=== PATIENT | male | born 2000 | race American Indian/Alaskan Native ===

== ENCOUNTER 2020-10-27 11:39 | Emergency (ER) | payer MEDICAID ==
[2020-10-27 12:09] VITALS: BP 128/83
[2020-10-27] MEDS ORDERED: ONDANSETRON 4 MG ODT TAB ONE (12:10)
[2020-10-27] MEDS ORDERED: ONDANSETRON 4 MG ODT TAB PO ONE (12:11)
[2020-10-27] MEDS ORDERED: SODIUM CHLORIDE 0.9% 1000 ML 1,000 ML IV ONE (12:30)
--- NOTE | 2020-10-27 12:30 | Emergency Department Report ---
Blank Doc - Documentation Documentation: The emergency department complaining of severe right lower quadrant pain radia shelley to the right flank This initial assessment/diagnostic orders/clinical plan/treatment(s) is/are subject to change based on patients health status, clinical progression and re- assessment by fellow clinical providers in the ED. Further treatment and workup at subsequent clinical providers discretion. Patient/guardian urged not to elope from the ED as their condition may be serious if not clinically assessed and managed. Initial orders include: Labs urinalysis and CT scan
== END 2020-10-27 13:13 ==
LOC: ED 11:39
DX: R10.31 Right lower quadrant pain (principal); Z53.21 Procedure and treatment not carried out due to patient leaving prior to being seen by health care provider
CPT/HCPCS: Q0162

== ENCOUNTER 2020-12-07 09:15 | Emergency (ER) | payer SELFPAY ==
[2020-12-07 09:20] VITALS: BP 133/89
--- NOTE | 2020-12-07 09:22 | Event Note ---
ED Screening Note ED Screening Note: r flank pain off and on for months bad enough to come to ER again left in Dec due to wait n/v in the past - not today no diarrhea/constipation no fever or chills no dc blood in urine once - not this visit no pcp denies drugs/etoh/thc psh tubes in ears pmh denies This initial assessment/diagnostic orders/clinical plan/treatment(s) is/are subject to change based on patients health status, clinical progression and re- assessment by fellow clinical providers in the ED. Further treatment and workup at subsequent clinical providers discretion. Patient/guardian urged not to elope from the ED as their condition may be serious if not clinically assessed and managed. Initial orders include: ua chem/cbc
[2020-12-07 10:09] LABS: Basophils # (Auto) 0.1 K/mm3 (0.0-0.1); Basophils % (Auto) 1.1 % (0.0-1.8); Eosinophils # (Auto) 0.3 K/mm3 (0.0-0.4); Eosinophils % (Auto) 6.6 % (0.0-4.3); Hematocrit 43.3 % (35.5-45.6); Hemoglobin 14.8 gm/dl (11.8-15.2); Lymphocytes % (Auto) 42.6 % (13.4-35.0); Mean Corpuscular HGB Conc 34 % (32-34); Mean Corpuscular Volume 95 fl (84-94); Monocytes # (Auto) 0.6 K/mm3 (0.0-0.8); Monocytes % (Auto) 12.4 % (0.0-7.3); Platelet Count 188 K/mm3 (140-440); Red Blood Count 4.53 M/mm3 (3.65-5.03); Red Cell Distribution Width 13.1 % (13.2-15.2)
[2020-12-07 10:23] LABS: Alanine Aminotransferase 18 units/L (7-56); Albumin 4.6 g/dL (3.9-5); BUN/Creatinine Ratio 13; Blood Urea Nitrogen 12 mg/dL (9-20); Calcium 9.3 mg/dL (8.4-10.2); Hemolysis Index 28
[2020-12-07 10:54] LABS: Bilirubin,Urine NEG (Negative); Blood,Urine LG (Negative); Calcium Oxalate Crystals,Urine 1+; Color,Urine Yellow (Yellow); Mucus,Urine 3+ /HPF; RBC,Urine > 182.0 /HPF (0.0-6.0); Urobilinogen,Urine < 2.0 mg/dL (<2.0)
[2020-12-07] MEDS ORDERED: ACETAMINOPHEN 325 MG TAB PO ONE (11:23)
[2020-12-07] MEDS ORDERED: IBUPROFEN 400 MG TAB PO ONE (11:23)
--- NOTE | 2020-12-07 11:28 | Emergency Department Report ---
ED General Adult HPI - General Chief complaint: Abdominal Pain Stated complaint: SIDE PAIN PUI?: No Time Seen by Provider: 12/07/20 09:18 Source: patient, RN notes reviewed, old records reviewed Mode of arrival: Ambulatory Limitations: No Limitations - History of Present Illness Initial comments: The patient was evaluated in the emergency department for symptoms described in the history of present illness. He/she was evaluated in the context of the global COVID-19 pandemic, which necessitated consideration that the patient might be at risk for infection with the virus that causes COVID-19. Institutional protocols and algorithms that pertain to the evaluation of patients at risk for COVID-19 are in a state of rapid change based on information released by regulatory bodies including the CDC and federal and state organizations. These policies and algorithms were followed during the patient's care in the emergency department. Please note that these policies, procedures and recommendations changed on a rapid basis. This is a 20-year-old gentleman, who is not known to myself previously, presenting to the ER with a complaint of nontraumatic right flank pain for a few weeks to about a month and a half. He denies all other complaints. He denies testicular pain, nausea, vomiting, fever, dysuria. He has not really taken anything [id number] for this. He is currently drinking water. The pain does not radiate anywhere. The pain does not have exacerbating or relieving factors. No history of renal colic that he is aware of. -: Gradual, week(s), month(s) Location: abdomen Radiation: non-radiation Quality: aching Consistency: intermittent Improves with: none Worsens with: none Associated Symptoms: denies other symptoms - Related Data Previous Rx's Medication Instructions Recorded Last Taken Type Acetaminophen [Mapap] 500 mg PO Q6HR PRN #30 tablet 12/07/20 Unknown Rx Ibuprofen [Motrin] 400 mg PO Q8H PRN #30 tablet 12/07/20 Unknown Rx Ondansetron [Zofran Odt] 4 mg PO Q8HR PRN #20 tab.rapdis 12/07/20 Unknown Rx Tamsulosin [Flomax] 0.4 mg PO QHS #30 cap 12/07/20 Unknown Rx Allergies Allergy/AdvReac Type Severity Reaction Status Date / Time bee pollen Allergy Anaphylaxis Verified 12/07/20 09:17 ED Review of Systems ROS: Stated complaint: SIDE PAIN Other details as noted in HPI Comment: All other systems reviewed and negative Constitutional: denies: fever Gastrointestinal: denies: nausea, vomiting, diarrhea, constipation, hematemesis, melena, hematochezia Genitourinary: denies: urgency, dysuria, frequency, hematuria, testicular pain Musculoskeletal: denies: back pain ED Past Medical Hx - Past Medical History Previous Medical History?: No - Surgical History Past Surgical History?: No - Social History Smoking Status: Never Smoker Substance Use Type: None - Medications Home Medications: Home Medications Medication Instructions Recorded Confirmed Last Taken Type Acetaminophen [Mapap] 500 mg PO Q6HR PRN #30 tablet 12/07/20 Unknown Rx Ibuprofen [Motrin] 400 mg PO Q8H PRN #30 tablet 12/07/20 Unknown Rx Ondansetron [Zofran Odt] 4 mg PO Q8HR PRN #20 tab.rapdis 12/07/20 Unknown Rx Tamsulosin [Flomax] 0.4 mg PO QHS #30 cap 12/07/20 Unknown Rx ED Physical Exam - General Limitations: No Limitations General appearance: alert, in no apparent distress - Head Head exam: Present: atraumatic, normocephalic - Eye Eye exam: Present: normal appearance, EOMI. Absent: nystagmus - ENT ENT exam: Present: normal exam, normal orophraynx, mucous membranes moist, normal external ear exam - Neck Neck exam: Present: normal inspection, full ROM. Absent: tenderness, meningismus - Respiratory Respiratory exam: Present: normal lung sounds bilaterally. Absent: respiratory distress, wheezes, rales, rhonchi, stridor, decreased breath sounds - Cardiovascular Cardiovascular Exam: Present: regular rate, normal rhythm, normal heart sounds. Absent: bradycardia, tachycardia, irregular rhythm, systolic murmur, diastolic murmur, rubs, gallop - GI/Abdominal GI/Abdominal exam: Present: soft, normal bowel sounds. Absent: distended, tenderness, guarding, rebound, rigid, pulsatile mass - Rectal Rectal exam: Present: deferred - Extremities Exam Extremities exam: Present: normal inspection, full ROM, other (2+ pulses noted in the bilateral upper and lower extremities. There is no palpable cord. negative Homans sign. Muscular compartments are soft. The pelvis is stable.). Absent: pedal edema, calf tenderness - Back Exam Back exam: Present: normal inspection, full ROM. Absent: tenderness, CVA tenderness (R), CVA tenderness (L), paraspinal tenderness, vertebral tenderness - Neurological Exam Neurological exam: Present: alert, oriented X3, normal gait, other (No facial droop. Tongue midline. Extraocular movements intact bilaterally. Facial sensation intact to light touch in V1, V2, V3 distribution bilaterally. 5 and a 5 strength in 4 extremities. Sensation intact to light touch in 4 extremities.). Absent: motor sensory deficit - Psychiatric Psychiatric exam: Present: normal affect, normal mood - Skin Skin exam: Present: warm, dry, intact, normal color. Absent: rash ED Course Vital Signs 12/07/20 09:18 Temperature 97.7 F Pulse Rate 69 Respiratory 20 Rate Blood Pressure 133/89 O2 Sat by Pulse 100 Oximetry ED Medical Decision Making - Lab Data Result diagrams: 12/07/20 09:31 12/07/20 09:31 Vital Signs 12/07/20 09:18 Temperature 97.7 F Pulse Rate 69 Respiratory 20 Rate Blood Pressure 133/89 O2 Sat by Pulse 100 Oximetry Lab Results 12/07/20 12/07/20 12/07/20 Range/Units 09:28 09:31 09:31 WBC 4.7 (4.5-11.0) K/mm3 RBC 4.53 (3.65-5.03) M/mm3 Hgb 14.8 (11.8-15.2) gm/dl Hct 43.3 (35.5-45.6) % MCV 95 H (84-94) fl MCH 33 H (28-32) pg MCHC 34 (32-34) % RDW 13.1 L (13.2-15.2) % Plt Count 188 (140-440) K/mm3 Lymph % (Auto) 42.6 H (13.4-35.0) % Crook % (Auto) 12.4 H (0.0-7.3) % Eos % (Auto) 6.6 H (0.0-4.3) % Baso % (Auto) 1.1 (0.0-1.8) % Lymph # (Auto) 2.0 (1.2-5.4) K/mm3 Crook # (Auto) 0.6 (0.0-0.8) K/mm3 Eos # (Auto) 0.3 (0.0-0.4) K/mm3 Baso # (Auto) 0.1 (0.0-0.1) K/mm3 Seg Neutrophils % 37.3 L (40.0-70.0) % Seg Neutrophils # 1.8 (1.8-7.7) K/mm3 Sodium 139 (137-145) mmol/L Potassium 4.3 (3.6-5.0) mmol/L Chloride 105.0 (98-107) mmol/L Carbon Dioxide 29 (22-30) mmol/L Anion Gap 9 mmol/L BUN 12 (9-20) mg/dL Creatinine 0.9 (0.8-1.3) mg/dL Estimated GFR > 60 ml/min BUN/Creatinine Ratio 13 % Glucose 98 (75-100) mg/dL Calcium 9.3 (8.4-10.2) mg/dL Total Bilirubin 0.80 (0.1-1.2) mg/dL AST 18 (5-40) units/L ALT 18 (7-56) units/L Alkaline Phosphatase 57 (35-129) units/L Total Protein 7.4 (6.3-8.2) g/dL Albumin 4.6 (3.9-5) g/dL Albumin/Globulin Ratio 1.6 % Lipase 26 (13-60) units/L Urine Color Yellow (Yellow) Urine Turbidity Hazy (Clear) Urine pH 5.0 (5.0-7.0) Ur Specific Mulino 1.029 (1.003-1.030) Urine Protein 100 mg/dl (Negative) mg/dL Urine Glucose (UA) Neg (Negative) mg/dL Urine Ketones Neg (Negative) mg/dL Urine Blood Lg (Negative) Urine Nitrite Neg (Negative) Urine Bilirubin Neg (Negative) Urine Urobilinogen < 2.0 (<2.0) mg/dL Ur Leukocyte Esterase Neg (Negative) Urine WBC (Auto) 3.0 (0.0-6.0) /HPF Urine RBC (Auto) > 182.0 (0.0-6.0) /HPF U Epithel Cells (Auto) 1.0 (0-13.0) /HPF Calcium Oxalate Crystal 1+ Urine Mucus 3+ /HPF - Medical Decision Making Differential diagnosis, including but not limited to: Renal colic, genitourinary malignancy Assessment and plan: 20-year-old gentleman, who is afebrile, with reassuring vital signs, with a soft benign abdomen, without rebound, guarding or peritoneal signs, nontoxic-appearing, no history of fever, chills, presenting with right- sided abdominal pain for a few weeks to a few months. Laboratory studies were ordered prior to my personal evaluation. They are u nremarkable with the exception of hematuria. Patient denies testicular pain, dysuria, current flank pain. This is most likely renal colic, however, malignancy cannot be excluded. However, as symptoms have been present for a few weeks to a few months, do not see indication for emergent CT imaging. Patient and I discussed emergent CT imaging. Patient prefers to not have CT imaging here in the ER out of concern for radiation exposure. He states he will follow-up with a local urologist. I think this plan of care is reasonable. Therefore, through shared decision-making, will discharge with medical expulsive therapy empirically, pain medication, nausea medication, instructions to follow- up with outpatient urology closely. Return precautions are reviewed. On final reassessment, patient drinking water, playing on his cellular phone, and does not appear to be in any acute distress. Critical care attestation.: If time is entered above; I have spent that time in minutes in the direct care of this critically ill patient, excluding procedure time. ED Disposition Clinical Impression: Hematuria, Right sided abdominal pain Disposition: DC-01 TO HOME OR SELFCARE Is pt being admited?: No Does the pt Need Aspirin: No Condition: Stable Instructions: Flank Pain, Adult, Hematuria, Adult, Renal Colic, [id number] Additional Instructions: Please take the medications as directed. Please make certain to drink at least 6 cups of water per day indefinitely. Please take Flomax medication at night, be careful when taking this medication, it may cause dizziness, lightheadedness, feeling like patient may almost pass out. We recommend follow-up with an outpatient neurologist within the next 5 to 7 days. It is very important to follow-up with a urologist to exclude genitourinary cancer, tumor, malignancy. However, the patient most likely has simple renal colic/kidney stones. Patient may contact the listed urology group or google a local urology group on his phone, to arrange follow-up. Please take the prescribed pain medication and nausea medication as needed and directed. Please return to the emergency room right away with new pain, worsened pain, faiza ration of pain, projectile vomiting, change in mental status, confusion, inability to tolerate liquid feeds, new, worsened or different symptoms not present on initial emergency room evaluation. Avoid consumption of tobacco, cigarettes, and alcohol. Referrals: RAMONA ESCALERA MD [Staff Physician] - 3-5 Days [facility] [Provider Group] - 3-5 Days
== END 2020-12-07 11:45 | disposition home or self-care (01) ==
LOC: ED 09:15
DX: R31.9 Hematuria, unspecified (principal); R10.9 Unspecified abdominal pain; Z79.899 Other long term (current) drug therapy
CPT/HCPCS: 36415; 80053; 81001; 83690; 85025; 99283